=== PATIENT | female | born 1995 | race Caucasian/White ===

== ENCOUNTER 2018-10-10 19:15 | Emergency (ER) | payer OTHER, SELFPAY ==
[2018-10-10 19:24] VITALS: BP 115/73; PULSE 80; RESP 18; TEMP 37.1; O2SAT 100; BMI 24.7
--- NOTE | 2018-10-10 19:29 | DI.RAD.S_ITS ---
PROCEDURE: XR CHEST 2V INDICATIONS: coughing up blood, cough x 2 weeks -- h/o asthma TECHNIQUE: 2 views of the chest were acquired. COMPARISON: None. FINDINGS: Surgical changes and devices: None. Lungs and pleura: Focal opacity to the posterior aspect of the left lung base concerning for aspiration versus pneumonia. No pleural effusions or pneumothorax. Mediastinum: Mediastinal contours are normal. Heart size is normal. Bones and chest wall: No suspicious bony abnormalities. Soft tissues appear unremarkable. IMPRESSION: Left basilar aspiration versus pneumonia. Dictated by: Saritha Sadler MD, PhD on 10/10/2018 at 19:44 Approved by: Saritha Sadler MD, PhD on 10/10/2018 at 19:45
[2018-10-10 19:55] LABS: Influenza A and B by PCR Rapid Negative (Negative)
[2018-10-10 22:00] VITALS: BP 123/83; PULSE 65; O2SAT 99
--- NOTE | 2018-10-10 22:00 | ED_ITS ---
HPI - URI/Sore Throat General Chief Complaint: Upper Respiratory Symptoms Stated Complaint: COUGHING UP BLOOD Time Seen by Provider: 10/10/18 21:59 Source: patient Mode of arrival: ambulatory Limitations: no limitations History of Present Illness HPI Narrative: The patient has been ill for 2 weeks. She has developed productive cough. She denies URI symptoms. She has no sore throat. Today she developed hemoptysis. She has no fever, chills or fatigue. She vapes but has not recently. She has asthma but is having no difficulty breathing. She has no chest pain. she has no URI symptoms along with the cough. She has no calf pain or swelling. She has no history of PE or DVT. Related Data Home Medications Medication Instructions Recorded Confirmed No Known Home Medications 10/10/18 10/10/18 Previous Rx's Medication Instructions Recorded levofloxacin [Levaquin] 750 mg PO DAILY 6 Days tab 10/11/18 Allergies Allergy/AdvReac Type Severity Reaction Status Date / Time levofloxacin [From Levaquin] Allergy Rash Verified 10/10/18 22:54 Review of Systems Review of Systems ROS Unobtainable: All systems reviewed & are unremarkable except as noted in HPI and below Constitutional Denies chills, Denies fever(s), Denies lethargy and Denies weakness ENT Ears, Nose, Mouth, and Throat: Denies change in voice, Denies neck pain and Denies sore throat Cardiovascular Denies chest pain, Denies lightheadedness and Denies palpitations Respiratory Denies cough (Productive.), Denies wheezing and Reports other (Hemoptysis) Gastrointestinal Gastrointestinal: Denies abdominal pain, Denies change in bowel habits, Denies diarrhea, Denies nausea and Denies vomiting Genitourinary Denies dysuria and Denies flank pain Comments: She is not . Musculoskeletal Denies neck pain Integumentary/Breasts Denies rash Neurologic Denies weakness Endocrine Denies palpitations Allergic/Immunologic Denies wheezing [facility] Medical History (Updated 10/11/18 @ 01:11 by Major Martínez MD) Asthma (Acute) Surgical History (Updated 10/10/18 @ 22:09 by Major Martínez MD) No pertinent past surgical history (Acute) Social History Smoking Status: Current some day smoker Social History Smoking Status: Current some day smoker Exam Initial Vital Signs Initial Vital Signs: Vital Signs Temperature 98.8 F 10/10/18 19:24 Pulse Rate 80 10/10/18 19:24 Respiratory Rate 18 10/10/18 19:24 Blood Pressure 115/73 10/10/18 19:24 Pulse Oximetry 100 10/10/18 19:24 Const General: cooperative and well developed Nutritional Appearance: well nourished Orientation: alert, awake, oriented x3 and not confused HENMO Head: other (No sinus tenderness) Mouth: oral mucosae normal Throat: posterior oropharynx normal Neck Neck: No lymphadenopathy Chest Chest: normal inspection of the chest and No tenderness Resp Auscultation: rales on the left in the lower lung paz Cardio Rate: regular rate Rhythm: regular rhythm Heart Sounds: no click, no gallops, no murmurs and no rubs Pulses: normal peripheral pulses GI Inspection: non-distended Palpation: soft, no hepatosplenomegaly, No guarding and No tender Auscultation: normal bowel sounds Back/Spine/Pelvis Back: No CVA tenderness Cervical Spine: cervical ROM normal Thoracic/Lumbar Spine: thoracic and lumbar spine normal to inspection Skin General: no rashes or lesions noted Neuro General: alert, oriented x3, gait normal and no focal motor deficits Speech: speech normal Course Course Narrative: The patient was started on Levaquin for left lower lobe pneumonia. Labs are normal. she should do well on oral antibiotics, but should follow up with her doctor in 2-3 weeks. Orders Ordered: ED Orders 10/10/18 19:29 XR chest 2V Stat 10/10/18 19:30 Influenza A and B by PCR Rapid Stat 10/10/18 22:31 Basic Metabolic Panel Stat Complete Blood Count AUTO DIFF Stat D Dimer Stat Lactate (Lactic Acid) Stat Discontinued Medications Diphenhydramine HCl (Benadryl) 25 mg IV NOW ONE Stop: 10/10/18 22:56 Last Admin: 10/10/18 22:58 Dose: 25 mg Levofloxacin (Levaquin) 750 mg in 150 mls @ 100 mls/hr IV NOW ONE Stop: 10/10/18 23:33 Last Infusion: 10/11/18 00:53 Dose: 0 mls/hr Infusion: 10/10/18 23:32 Dose: 100 mls/hr Infusion: 10/10/18 22:47 Dose: 0 mls/hr Admin: 10/10/18 22:36 Dose: 100 mls/hr Vital Signs - 8 hr 10/10/18 19:24 10/10/18 22:00 10/10/18 22:30 Temperature 98.8 F Pulse Rate 80 65 60 Respiratory Rate 18 Blood Pressure 115/73 Blood Pressure [Right Arm] 123/83 119/71 Pulse Oximetry 100 99 100 10/10/18 23:30 10/11/18 00:30 Temperature Pulse Rate 55 L 69 Respiratory Rate 16 16 Blood Pressure Blood Pressure [Right Arm] 112/63 122/86 Pulse Oximetry 99 99 MDM - URI/Sore Throat Lab Data Result diagrams: 10/10/18 22:31 10/10/18 22:31 Lab Results 10/10/18 10/10/18 10/10/18 Range/Units 19:30 22:31 22:31 WBC 9.1 (4.5-11.0) X10^3/uL RBC 4.77 (4.0-5.2) X10^6/uL Hgb 14.8 (12.0-16.0) g/dL Hct 41.4 (36-46) % MCV 86.7 (80-100) fL MCH 31.1 (26-34) PG MCHC 35.8 (30-36) % RDW 12.6 (11.6-14.8) % Plt Count 345 (150-400) X10^3/uL Neut % (Auto) 50.8 (50-75) % Lymph % (Auto) 39.3 (25-40) % [place] % (Auto) 6.8 (3-14) % Eos % (Auto) 2.5 (2-4) % Baso % (Auto) 0.6 (0-2) % Neut # (Auto) 4600 (1293-2065) /uL Lymph # (Auto) 3600 (2522-7841) /uL [place] # (Auto) 600 (0-900) /uL Eos # (Auto) 200 (0-450) /uL Baso # (Auto) 100 (0-100) /uL D-Dimer < 200 (<230) ng/mL Sodium (137-145) mmol/L Potassium (3.4-5.1) mmol/L Chloride (98-107) mmol/L Carbon Dioxide (22-32) mmol/L BUN (7-17) mg/dL Creatinine (0.52-1.04) mg/dL Estimated GFR (>60) mL/min BUN/Creatinine Ratio (6-22) Glucose (70-100) mg/dL Lactate (0.7-2.1) mmol/L Calcium (8.4-10.2) mg/dL Influenza A & B (PCR) Negative (Negative) 10/10/18 10/10/18 Range/Units 22:31 22:31 WBC (4.5-11.0) X10^3/uL RBC (4.0-5.2) X10^6/uL Hgb (12.0-16.0) g/dL Hct (36-46) % MCV (80-100) fL MCH (26-34) PG MCHC (30-36) % RDW (11.6-14.8) % Plt Count (150-400) X10^3/uL Neut % (Auto) (50-75) % Lymph % (Auto) (25-40) % [place] % (Auto) (3-14) % Eos % (Auto) (2-4) % Baso % (Auto) (0-2) % Neut # (Auto) (6235-4459) /uL Lymph # (Auto) (8480-5114) /uL [place] # (Auto) (0-900) /uL Eos # (Auto) (0-450) /uL Baso # (Auto) (0-100) /uL D-Dimer (<230) ng/mL Sodium 140 (137-145) mmol/L Potassium 3.8 (3.4-5.1) mmol/L Chloride 103 (98-107) mmol/L Carbon Dioxide 27 (22-32) mmol/L BUN 14 (7-17) mg/dL Creatinine 0.80 (0.52-1.04) mg/dL Estimated GFR > 60.0 (>60) mL/min BUN/Creatinine Ratio 17.5 (6-22) Glucose 87 (70-100) mg/dL Lactate 0.6 L (0.7-2.1) mmol/L Calcium 9.9 (8.4-10.2) mg/dL Influenza A & B (PCR) (Negative) Imaging Data Chest x-ray: Radiologist's impression: [address] [address] XRay Report Signed Patient: Tran BunnR#: [id number] : 1995Acct:[id number] Age/Sex: 23 / FDate of Service: 10/10/18 Loc: ED Accession Number: [id number] Procedure: XR chest 2V Ordering Provider: Major Martínez M.D. PROCEDURE: XR CHEST 2V INDICATIONS: coughing up blood, cough x 2 weeks -- h/o asthma TECHNIQUE: 2 views of the chest were acquired. COMPARISON: None. FINDINGS: Surgical changes and devices: None. Lungs and pleura: Focal opacity to the posterior aspect of the left lung base concerning for aspiration versus pneumonia. No pleural effusions or pneumothorax. Mediastinum: Mediastinal contours are normal. Heart size is normal. Bones and chest wall: No suspicious bony abnormalities. Soft tissues appear unremarkable. IMPRESSION: Left basilar aspiration versus pneumonia. Dictated by: Saritha Sadler MD, PhD on 10/10/2018 at 19:44 Approved by: Saritha Sadler MD, PhD on 10/10/2018 at 19:45 Discharge Plan Departure Patient Disposition: Home Clinical Impression: LLL pneumonia Qualifiers: Pneumonia type: due to unspecified organism Qualified Code(s): J18.1 - Lobar pneumonia, unspecified organism Instructions: DI for Pneumonia -- Adult Activity Restrictions/Additional Instructions: Levaquin 1 tablet daily as prescribed. Robitussin DM 2 tsp every 4 hours as needed to help prevent cough. Recheck with her doctor in 2-3 weeks to assure the pneumonia is resolving. Return to the ER if obviously worse. Prescriptions: New levofloxacin [Levaquin] 750 mg tablet 750 mg PO DAILY 6 Days RF: 0 No Action No Known Home Medications RF: 0
[2018-10-10 22:30] VITALS: BP 119/71; PULSE 60; O2SAT 100
[2018-10-10] MEDS: levoFLOXacin 750 MG/150 ML PIGGYBACK 100 MG IV (22:36)
--- NOTE | 2018-10-10 22:50 | PC.NURSE ---
patient complaining of redness and itching at the IV site. IV antibiotics stopped and provider aware. provider ordered 25mg Benadryl IV and to hold medication until Benadryl starts working. patient denies any shortness of breath, throat swelling, chest pain or any other complaint.
[2018-10-10 22:51] LABS: D Dimer < 200 ng/mL (<230)
[2018-10-10 22:54] LABS: Add Manual Diff / Slide Review NO; Basophils Absolute Auto 100 /uL (0-100); Basophils Percent Auto 0.6 % (0-2); Eosinophils Absolute Auto 200 /uL (0-450); Eosinophils Percent Auto 2.5 % (2-4); Hematocrit 41.4 % (36-46); Hemoglobin 14.8 g/dL (12.0-16.0); Lymphocytes Absolute Auto 3600 /uL (1100-4500); Lymphocytes Percent Auto 39.3 % (25-40); Mean Corpuscular HGB Conc 35.8 % (30-36); Mean Corpuscular Hemoglobin 31.1 PG (26-34); Mean Corpuscular Volume 86.7 fL (80-100); Monocytes Absolute Auto 600 /uL (0-900); Monocytes Percent Auto 6.8 % (3-14); Neutrophils Absolute Auto 4600 /uL (1500-7000); Neutrophils Percent Auto 50.8 % (50-75); Platelet Count 345 X10^3/uL (150-400); Red Blood Cell Count 4.77 X10^6/uL (4.0-5.2); Red Cell Distribution Width 12.6 % (11.6-14.8); White Blood Cell Count 9.1 X10^3/uL (4.5-11.0)
[2018-10-10 22:58] LABS: BUN Creatinine Ratio 17.5 (6-22); Blood Urea Nitrogen 14 mg/dL (7-17); Calcium 9.9 mg/dL (8.4-10.2); Carbon Dioxide 27 mmol/L (22-32); Chloride 103 mmol/L (98-107); Estimated Glomerular Filt Rate > 60.0 mL/min (>60); Glucose 87 mg/dL (70-100); HEMOLYSIS < 15 (0-50); Lactate (Lactic Acid) 0.6 mmol/L (0.7-2.1); Potassium 3.8 mmol/L (3.4-5.1); Sodium 140 mmol/L (137-145)
[2018-10-10] MEDS: diphenhydrAMINE 50 MG/ML VIAL 25 MG IV (22:58)
[2018-10-10 23:30] VITALS: BP 112/63; PULSE 55; RESP 16; O2SAT 99
--- NOTE | 2018-10-10 23:30 | PC.NURSE ---
antibiotics started back via IV. provider aware. no new orders at this time.
--- NOTE | 2018-10-10 23:32 | PC.NURSE ---
antibiotic resumed per provider.
--- NOTE | 2018-10-10 23:50 | PC.NURSE ---
patient denies any rash, itching, shortness of breath or chest pain. denies any feelings of throat swelling. provider aware and no new orders at this time.
[2018-10-11 00:30] VITALS: BP 122/86; PULSE 69; RESP 16; O2SAT 99
--- NOTE | 2018-10-11 00:53 | PC.NURSE ---
antibiotic finished and patient denies any new rash, itching, shortness of breath or chest pain. provider aware and no new orders at this time.
[2018-10-11 01:25] VITALS: BP 103/74; PULSE 67; RESP 16; TEMP 36.9; O2SAT 100
== END 2018-10-11 01:25 | disposition home or self-care (01) ==
PROVIDERS: Emergency Provider Emergency Medicine
DX: J18.1 Lobar pneumonia, unspecified organism (principal)
CPT/HCPCS: 36591; 71046; 80048; 83605; 85025; 85379; 87400; 96365; 96366; 96375; 99284; J1200; J1956

== ENCOUNTER 2019-12-19 13:23 | Emergency (ER) | payer OTHER, SELFPAY ==
[2019-12-19 14:07] VITALS: BP 114/56; PULSE 73; RESP 14; TEMP 36.9; O2SAT 100; BMI 26.5
--- NOTE | 2019-12-19 14:12 | DI.RAD.S_ITS ---
PROCEDURE: XR FOOT RT MIN 3V INDICATIONS: horse stepped on foot, foot pain TECHNIQUE: 3 views of the foot were acquired. COMPARISON: None. FINDINGS: Bones: No fractures or dislocations. No suspicious bony lesions. Soft tissues: No tibiotalar joint effusion. Achilles tendon appears normal. IMPRESSION: No gross acute right foot fracture or dislocation. Dictated by: Praveen Schmidt M.D. on 12/19/2019 at 14:23 Approved by: Praveen Schmidt M.D. on 12/19/2019 at 14:24
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
== END 2019-12-19 16:28 | disposition home or self-care (01) ==
PROVIDERS: Emergency Provider Nurse Practitioner Family; PCP Family Medicine
DX: S90.31XA Contusion of right foot, initial encounter (principal); W22.8XXA Striking against or struck by other objects, initial encounter
CPT/HCPCS: 73630; 99283

== ENCOUNTER 2020-06-22 19:09 | Emergency (ER) | payer OTHER, SELFPAY ==
[2020-06-22] VITALS (12 sets, daily range): BP systolic 108–128; BP diastolic 60–75; PULSE 63–88; RESP 14–28; TEMP 36.7; O2SAT 97–100; BMI 25.6
[2020-06-22 19:48] LABS: COVID19 -Nasal RAPID Negative (Negative)
--- NOTE | 2020-06-22 20:06 | ED_ITS ---
HPI - URI/Sore Throat General Chief Complaint: Upper Respiratory Symptoms Stated Complaint: coughing up blood Time Seen by Provider: 06/22/20 20:00 Source: patient Mode of arrival: Ambulatory Limitations: no limitations History of Present Illness HPI Narrative: Patient is a 25-year-old female who presents with hemoptysis just a few hours prior. She states she had it once before and was pneumonia. She says today in last few days she has overall been feeling well she denies any fever she has had some increasing shortness of breath and wheezing. She does smoke nicotine and marijuana. She has an albuterol nebulizer and inhaler at home she has been using them intermittently she says that they do help. Today she had sudden onset of a severe coughing spell where she was coughing quite hard and coughed up about a tsp of bright red blood. She had another 1 in the emergency department which was mixed with spit. She denies any recent travel she has no real chest pain. She does feel like when she takes a breath she can't quite exhale all the way. She says previously when she had the diagnosed with pneumonia she also had no symptoms. She denies any recent travel no sick contacts MD Complaint: cough (Hemoptysis) Onset (ago): hour(s) Relieving factors: nothing Exacerbating factors: nothing Associated symptoms: shortness of breath Related Data Previous Rx's Medication Instructions Recorded doxycycline hyclate 100 mg PO BID #14 cap 06/22/20 Allergies Allergy/AdvReac Type Severity Reaction Status Date / Time levofloxacin [From Levaquin] Allergy Rash Verified 12/19/19 14:11 Review of Systems Review of Systems ROS Unobtainable: All systems reviewed & are unremarkable except as noted in HPI and below Constitutional Constitutional: Denies chills, Denies fever(s), Denies lethargy and Denies weakness Cardiovascular Cardiovascular: Denies chest pain, Denies irregular heart rhythm, Denies lightheadedness, Denies palpitations and Denies orthopnea Respiratory Respiratory: Reports as per HPI and Reports hemoptysis Gastrointestinal Gastrointestinal: Denies abdominal pain, Denies change in bowel habits, Denies diarrhea, Denies nausea and Denies vomiting Musculoskeletal Musculoskeletal: Denies arthralgias and Denies back pain Integumentary/Breasts Skin/Breast: Denies pruritus, Denies erythema, Denies rash and Denies wounds Neurologic Neurologic: Denies weakness Endocrine Endocrine: Denies palpitations Patient History Medical History (Updated 06/22/20 @ 21:33 by Beth Cole DO) Asthma Surgical History No pertinent past surgical history Social History Smoking Status: Current every day smoker Smoking Status: Current every day smoker tobacco type: vaping alcohol intake frequency: holidays/special occasions only Substance Use Type: does not use Exam Initial Vital Signs Initial Vital Signs: Vital Signs Temperature 98.1 F 06/22/20 19:20 Pulse Rate 88 06/22/20 19:20 Respiratory Rate 16 06/22/20 19:20 Blood Pressure 128/72 06/22/20 19:20 Pulse Oximetry 97 06/22/20 19:20 GENERAL: Well-appearing, well-nourished and in no acute distress. HEENT: Head atraumatic,EOMI, pupils reactive, face symmetric, moist mucous membranes CARDIOVASCULAR: Regular rate and rhythm without murmurs, rubs or gallops. RESPIRATORY: Breath sounds equal bilaterally, no wheezes rales or rhonchi. ABDOMEN: Soft, nontender. Normoactive bowel sounds all 4 quadrants. No guarding or rebound. EXTREMITIES: Normal range of motion, no clubbing or edema. Neurovascularly intact NEUROLOGICAL: Alert and oriented x4.Normal gait and speech. Cranial nerves II through XII grossly intact. SKIN: Warm, dry, no laceration, no petechiae, no rashes or lesions. Course Orders Ordered: ED Orders 06/22/20 19:25 COVID19 Stat 06/22/20 20:15 Complete Blood Count AUTO DIFF Stat Comprehensive Metabolic Panel Stat Lactate (Lactic Acid) Stat NT-proBNP (BNP-Adult 18+) Stat Partial Thromboplastin Time Stat Procalcitonin Stat Prothrombin Time INR Stat Troponin & CK Cardiac Panel Stat 06/22/20 20:18 Consult to Respiratory Therapy Evaluate & Treat 06/22/20 20:19 CT angio chest PE protocol Stat 06/22/20 20:45 Blood Culture Stat Discontinued Medications Albuterol (Albuterol 2.5 Mg/3 Ml Neb (Adult)) 2.5 mg INH NOW ONE Stop: 06/22/20 20:19 Last Admin: 06/22/20 20:45 Dose: 2.5 mg Documented by: [email or web address] Vital Signs Vital signs: Vital Signs - 8 hr 06/22/20 19:20 06/22/20 19:29 06/22/20 19:30 Temperature 98.1 F Pulse Rate 88 75 78 Respiratory Rate 16 Blood Pressure 128/72 Pulse Oximetry 97 98 98 06/22/20 20:00 06/22/20 20:02 06/22/20 20:19 Temperature Pulse Rate 72 83 Respiratory Rate Blood Pressure 108/60 Pulse Oximetry 98 99 06/22/20 20:30 06/22/20 20:46 06/22/20 20:52 Temperature Pulse Rate 71 63 78 Respiratory Rate 14 28 H Blood Pressure 109/74 Pulse Oximetry 98 99 100 06/22/20 21:00 06/22/20 21:30 06/22/20 21:38 Temperature Pulse Rate 67 69 77 Respiratory Rate 16 22 16 Blood Pressure 111/66 112/68 118/75 Pulse Oximetry 97 97 99 MDM - URI/Sore Throat Lab Data Attestation: I reviewed the patient's lab results. Result diagrams: 06/22/20 20:15 06/22/20 20:15 Labs: Lab Results 06/22/20 06/22/20 06/22/20 Range/Units 19:25 20:15 20:15 WBC 10.2 (4.5-11.0) X10^3/uL RBC 4.82 (4.0-5.2) X10^6/uL Hgb 14.9 (12.0-16.0) g/dL Hct 43.0 (36-46) % MCV 89.2 (80-100) fL MCH 30.9 (26-34) PG MCHC 34.6 (30-36) % RDW 13.0 (11.6-14.8) % Plt Count 315 (150-400) X10^3/uL Neut % (Auto) 59.6 (50-75) % Lymph % (Auto) 29.8 (25-40) % [place] % (Auto) 7.7 (3-14) % Eos % (Auto) 2.3 (2-4) % Baso % (Auto) 0.6 (0-2) % Neut # (Auto) 6100 (8534-8666) /uL Lymph # (Auto) 3000 (2979-9563) /uL Evangeline # (Auto) 800 (0-900) /uL Eos # (Auto) 200 (0-450) /uL Baso # (Auto) 100 (0-100) /uL PT 11.8 (10.1-12.7) SECONDS INR 1.0 (0.9-1.3) APTT 29 (26.4-36.2) SECONDS Sodium (137-145) mmol/L Potassium (3.4-5.1) mmol/L Chloride (98-107) mmol/L Carbon Dioxide (22-32) mmol/L BUN (7-17) mg/dL Creatinine (0.52-1.04) mg/dL Estimated GFR (>60) mL/min BUN/Creatinine Ratio (6-22) Glucose (70-100) mg/dL Lactate (0.7-2.1) mmol/L Calcium (8.4-10.2) mg/dL Total Bilirubin (0.2-1.3) mg/dL AST (14-36) IU/L ALT (<35) IU/L Alkaline Phosphatase (38-126) U/L Total Creatine Kinase (30-135) U/L CK-MB (CK-2) (<2.37) ng/mL CK-MB (CK-2) Rel Index (1.5-5.0) % Troponin I (0.01-0.034) ng/mL NT-Pro-B Natriuret Pep (<125) pg/mL Total Protein (6.3-8.2) g/dL Albumin (3.5-5.0) g/dL Globulin (1.7-4.1) g/dL Albumin/Globulin Ratio (1.0-2.8) Procalcitonin (<0.5) ng/mL COVID-19 PCR Negative (Negative) 06/22/20 06/22/20 06/22/20 Range/Units 20:15 20:15 20:15 WBC (4.5-11.0) X10^3/uL RBC (4.0-5.2) X10^6/uL Hgb (12.0-16.0) g/dL Hct (36-46) % MCV (80-100) fL MCH (26-34) PG MCHC (30-36) % RDW (11.6-14.8) % Plt Count (150-400) X10^3/uL Neut % (Auto) (50-75) % Lymph % (Auto) (25-40) % [place] % (Auto) (3-14) % Eos % (Auto) (2-4) % Baso % (Auto) (0-2) % Neut # (Auto) (3771-6007) /uL Lymph # (Auto) (2994-0040) /uL Ev[place]eline # (Auto) (0-900) /uL Eos # (Auto) (0-450) /uL Baso # (Auto) (0-100) /uL PT (10.1-12.7) SECONDS INR (0.9-1.3) APTT (26.4-36.2) SECONDS Sodium (137-145) mmol/L Potassium (3.4-5.1) mmol/L Chloride (98-107) mmol/L Carbon Dioxide (22-32) mmol/L BUN (7-17) mg/dL Creatinine (0.52-1.04) mg/dL Estimated GFR (>60) mL/min BUN/Creatinine Ratio (6-22) Glucose (70-100) mg/dL Lactate 1.4 (0.7-2.1) mmol/L Calcium (8.4-10.2) mg/dL Total Bilirubin (0.2-1.3) mg/dL AST (14-36) IU/L ALT (<35) IU/L Alkaline Phosphatase (38-126) U/L Total Creatine Kinase 106 (30-135) U/L CK-MB (CK-2) 0.87 (<2.37) ng/mL CK-MB (CK-2) Rel Index 0.8 L (1.5-5.0) % Troponin I < 0.012 (0.01-0.034) ng/mL NT-Pro-B Natriuret Pep 90 (<125) pg/mL Total Protein (6.3-8.2) g/dL Albumin (3.5-5.0) g/dL Globulin (1.7-4.1) g/dL Albumin/Globulin Ratio (1.0-2.8) Procalcitonin < 0.05 (<0.5) ng/mL COVID-19 PCR (Negative) 06/22/20 Range/Units 20:15 WBC (4.5-11.0) X10^3/uL RBC (4.0-5.2) X10^6/uL Hgb (12.0-16.0) g/dL Hct (36-46) % MCV (80-100) fL MCH (26-34) PG MCHC (30-36) % RDW (11.6-14.8) % Plt Count (150-400) X10^3/uL Neut % (Auto) (50-75) % Lymph % (Auto) (25-40) % [place] % (Auto) (3-14) % Eos % (Auto) (2-4) % Baso % (Auto) (0-2) % Neut # (Auto) (5955-4327) /uL Lymph # (Auto) (0134-0447) /uL Evangeline # (Auto) (0-900) /uL Eos # (Auto) (0-450) /uL Baso # (Auto) (0-100) /uL PT (10.1-12.7) SECONDS INR (0.9-1.3) APTT (26.4-36.2) SECONDS Sodium 138 (137-145) mmol/L Potassium 3.8 (3.4-5.1) mmol/L Chloride 104 (98-107) mmol/L Carbon Dioxide 29 (22-32) mmol/L BUN 12 (7-17) mg/dL Creatinine 0.77 (0.52-1.04) mg/dL Estimated GFR > 60.0 (>60) mL/min BUN/Creatinine Ratio 15.6 (6-22) Glucose 90 (70-100) mg/dL Lactate (0.7-2.1) mmol/L Calcium 9.6 (8.4-10.2) mg/dL Total Bilirubin 0.4 (0.2-1.3) mg/dL AST 31 (14-36) IU/L ALT 27 (<35) IU/L Alkaline Phosphatase 44 (38-126) U/L Total Creatine Kinase (30-135) U/L CK-MB (CK-2) (<2.37) ng/mL CK-MB (CK-2) Rel Index (1.5-5.0) % Troponin I (0.01-0.034) ng/mL NT-Pro-B Natriuret Pep (<125) pg/mL Total Protein 7.7 (6.3-8.2) g/dL Albumin 4.5 (3.5-5.0) g/dL Globulin 3.2 (1.7-4.1) g/dL Albumin/Globulin Ratio 1.4 (1.0-2.8) Procalcitonin (<0.5) ng/mL COVID-19 PCR (Negative) Point of Care Testing Test Results Negative Urine Dip Bedside Urine Glucose Negative Bedside Urine Bilirubin - Negative Bedside Urine Ketone - Negative Urine Specific [place] 1.020 Bedside Urine Occult Blood - Negative Bedside Urine pH 6.5 Bedside Urine Protein - Negative Bedside Urine Urobilinogen - Negative Bedside Urine Nitrite - Negative Bedside Urine Leukocytes - Negative Esterase Imaging Data CT scan - chest: Radiologist's Impression: PROCEDURE: CT ANGIO CHEST PE PROTOCOL INDICATIONS: Hemoptysis TECHNIQUE: After the administration of intravenous contrast, 2 mm thick sections acquired from the pulmonary apices to the posterior costophrenic angles. 3-dimensional maximum intensity projection (MIP) coronal and sagittal reformats were then acquired through the thorax. For radiation dose reduction, the following was used: automated exposure control, adjustment of mA and/or kV according to patient size. COMPARISON: None. FINDINGS: Image quality: Excellent. Pulmonary arteries: Pulmonary arteries are normal in size, and demonstrate no intraluminal filling defects to suggest central pulmonary embolism. Lungs and pleura: In the left posteromedial lower lobe retrocardiac region, there is a multi lobulated, multiloculated irregular cavitary mass measuring 6.1 x 3.1 x 4.8 cm containing irregular, both thick and thin carlisle, and central fluid. The lungs are otherwise clear. No pleural effusion. No pneumothorax. There is peribronchial thickening along lower lobe airways on the left, likely confluent adenopathy. Mediastinum: Heart size is normal. Trace pericardial effusion. There is low- density anterior mediastinal masses slightly lobulated contours measuring about 3.0 x 1.8 cm with concave margin and slightly unusual morphology for residual thymus gland. Small AP window lymph nodes are present. No mediastinal or hilar adenopathy. Thoracic aorta is normal in caliber and enhancement. Esophagus is normal in caliber, without hiatal hernia. Bones and chest wall: No suspicious bony lesions. Ribs and thoracic spine appear intact throughout. Thyroid gland is normal . No axillary or supraclavicular adenopathy. Abdomen: Visualized upper abdominal solid organs appear normal in the early arterial phase of enhancement. IMPRESSION: 1. 6.1 cm cavitary, multiloculated cystic mass in the left lower lobe medially. Differential diagnosis includes pulmonary parenchymal abscess, sequelae of endocarditis, less likely cystic cavitary neoplasm. Bronchoscopy for sampling is recommended. 2. Anterior mediastinal mass in the expected location of residual thymus tissue, but slightly more pronounced. 3. Mild reactive mediastinal and left hilar adenopathy. 4. No pulmonary embolus. Dictated by: Viky Bangura M.D. on 06/22/2020 at 21:00 [facility] Narrative Medical decision making narrative: Patient is afebrile with nonproductive cough. It sounds as though she had quite in aggressive coughing spell earlier today which is likely the cause of her tsp of hemoptysis. CT does show a cavitary lesions possible abscess in her left lower lobe. It does not seem to be eroding into blood vessels and is unlikely the cause of her hemoptysis. She is afebrile without any leukocytosis or infectious symptoms, however will treat her with course of antibiotics. I have discussed with her she likely needs further evaluation and a bronchoscopy to further diagnose this area. At this time she has had no further episodes of hemoptysis in the emergency department, she is hemodynamically stable. She does have a primary care provider whom she can follow up with. Discharge Plan Departure Patient Disposition: Home Clinical Impression: Cavitating mass in left lower lung lobe Upper respiratory infection Qualifiers: URI type: unspecified viral URI Qualified Code(s): J06.9 - Acute upper respiratory infection, unspecified Instructions: DI for Hemoptysis Activity Restrictions/Additional Instructions: *You have been diagnosed with coughing of blood and mass in left lower lobe *What to do: The area in the left lung is likely infection. However it is imperative that you follow-up, it may require more testing. It is on likely the cause of your blood today. We will be putting you on antibiotics to see if it helps *Continue to take medications as directed Doxycycline 100 mg twice a day for 7 days *Follow up with your primary care provider in 2-3 days *Return to ER if you should have coughing up more than half a cup of blood, increasing shortness of breath, chest pain or any new, worsening or concerning symptoms Prescriptions: New doxycycline hyclate 100 mg capsule 100 mg PO BID Qty: 14 RF: 0
--- NOTE | 2020-06-22 20:17 | PC.NURSE ---
Pt managed to cough up sputum, bright red blood present, MD notified. Sputum sent to lab.
--- NOTE | 2020-06-22 20:19 | DI.CT.S_ITS ---
PROCEDURE: CT ANGIO CHEST PE PROTOCOL INDICATIONS: Hemoptysis TECHNIQUE: After the administration of intravenous contrast, 2 mm thick sections acquired from the pulmonary apices to the posterior costophrenic angles. 3-dimensional maximum intensity projection (MIP) coronal and sagittal reformats were then acquired through the thorax. For radiation dose reduction, the following was used: automated exposure control, adjustment of mA and/or kV according to patient size. COMPARISON: None. FINDINGS: Image quality: Excellent. Pulmonary arteries: Pulmonary arteries are normal in size, and demonstrate no intraluminal filling defects to suggest central pulmonary embolism. Lungs and pleura: In the left posteromedial lower lobe retrocardiac region, there is a multi lobulated, multiloculated irregular cavitary mass measuring 6.1 x 3.1 x 4.8 cm containing irregular, both thick and thin carlisle, and central fluid. The lungs are otherwise clear. No pleural effusion. No pneumothorax. There is peribronchial thickening along lower lobe airways on the left, likely confluent adenopathy. Mediastinum: Heart size is normal. Trace pericardial effusion. There is low-density anterior mediastinal masses slightly lobulated contours measuring about 3.0 x 1.8 cm with concave margin and slightly unusual morphology for residual thymus gland. Small AP window lymph nodes are present. No mediastinal or hilar adenopathy. Thoracic aorta is normal in caliber and enhancement. Esophagus is normal in caliber, without hiatal hernia. Bones and chest wall: No suspicious bony lesions. Ribs and thoracic spine appear intact throughout. Thyroid gland is normal . No axillary or supraclavicular adenopathy. Abdomen: Visualized upper abdominal solid organs appear normal in the early arterial phase of enhancement. IMPRESSION: 1. 6.1 cm cavitary, multiloculated cystic mass in the left lower lobe medially. Differential diagnosis includes pulmonary parenchymal abscess, sequelae of endocarditis, less likely cystic cavitary neoplasm. Bronchoscopy for sampling is recommended. 2. Anterior mediastinal mass in the expected location of residual thymus tissue, but slightly more pronounced. 3. Mild reactive mediastinal and left hilar adenopathy. 4. No pulmonary embolus. Dictated by: Viky Bangura M.D. on 06/22/2020 at 21:00 Approved by: Viky Bangura M.D. on 06/22/2020 at 21:13
[2020-06-22 20:26] LABS: Add Manual Diff / Slide Review NO; Basophils Absolute Auto 100 /uL (0-100); Basophils Percent Auto 0.6 % (0-2); Eosinophils Absolute Auto 200 /uL (0-450); Eosinophils Percent Auto 2.3 % (2-4); Hemoglobin 14.9 g/dL (12.0-16.0); Lymphocytes Absolute Auto 3000 /uL (1100-4500); Lymphocytes Percent Auto 29.8 % (25-40); Mean Corpuscular HGB Conc 34.6 % (30-36); Mean Corpuscular Hemoglobin 30.9 PG (26-34); Mean Corpuscular Volume 89.2 fL (80-100); Monocytes Absolute Auto 800 /uL (0-900); Monocytes Percent Auto 7.7 % (3-14); Neutrophils Absolute Auto 6100 /uL (1500-7000); Neutrophils Percent Auto 59.6 % (50-75); Platelet Count 315 X10^3/uL (150-400); Red Blood Cell Count 4.82 X10^6/uL (4.0-5.2); White Blood Cell Count 10.2 X10^3/uL (4.5-11.0)
[2020-06-22 20:28] LABS: Prothrombin Time 11.8 SECONDS (10.1-12.7)
[2020-06-22 20:31] LABS: PTT Partial Thromboplastin Tim 29 SECONDS (26.4-36.2)
[2020-06-22 20:33] LABS: Creatine Kinase 106 U/L (30-135)
[2020-06-22 20:34] LABS: Alanine Aminotransferase 27 IU/L (<35); Albumin 4.5 g/dL (3.5-5.0); Albumin Globulin Ratio 1.4 (1.0-2.8); Alkaline Phosphatase 44 U/L (38-126); Aspartate Aminotransferase 31 IU/L (14-36); BUN Creatinine Ratio 15.6 (6-22); Bilirubin Total 0.4 mg/dL (0.2-1.3); Blood Urea Nitrogen 12 mg/dL (7-17); Calcium 9.6 mg/dL (8.4-10.2); Carbon Dioxide 29 mmol/L (22-32); Chloride 104 mmol/L (98-107); Estimated Glomerular Filt Rate > 60.0 mL/min (>60); Globulin 3.2 g/dL (1.7-4.1); Glucose 90 mg/dL (70-100); HEMOLYSIS 20 (0-50); Potassium 3.8 mmol/L (3.4-5.1); Sodium 138 mmol/L (137-145); Total Protein 7.7 g/dL (6.3-8.2)
[2020-06-22 20:35] LABS: Lactate (Lactic Acid) 1.4 mmol/L (0.7-2.1)
[2020-06-22 20:43] LABS: NT-proBNP (BNP-Adult 18+) 90 pg/mL (<125)
[2020-06-22] MEDS: ALBUTEROL 2.5 MG/3 ML NEB (ADULT) INH (20:45)
[2020-06-22 21:20] LABS: CKMB % Relative Index 0.8 % (1.5-5.0); Creatine Kinase MB 0.87 ng/mL (<2.37); Troponin I < 0.012 ng/mL (0.01-0.034)
[2020-06-22 21:24] LABS: Procalcitonin < 0.05 ng/mL (<0.5)
== END 2020-06-22 21:45 | disposition home or self-care (01) ==
PROVIDERS: Emergency Provider Emergency Medicine
DX: J06.9 Acute upper respiratory infection, unspecified (principal); R91.8 Other nonspecific abnormal finding of lung field; Z20.828 Contact with and (suspected) exposure to other viral communicable diseases; J45.909 Unspecified asthma, uncomplicated; F17.210 Nicotine dependence, cigarettes, uncomplicated
CPT/HCPCS: 36415; 71275; 80053; 81003; 81025; 82550; 82553; 83605; 83880; 84145; 84484; 85025; 85610; 85730; 87040; 87635; 94640; 99284; J7613; Q9967